=== PATIENT | female | born 1965 | race Caucasian/White ===

== ENCOUNTER 2024-11-07 10:17 | Outpatient (CLI) | payer OTHER | END 2024-11-07 23:59 | disposition home or self-care (01) | LOC: MRI02 10:17 | PROVIDERS: ATTEND Orthopaedic Surgery | DX: S43.432A Superior glenoid labrum lesion of left shoulder, initial encounter (principal); M75.102 Unspecified rotator cuff tear or rupture of left shoulder, not specified as traumatic; M19.012 Primary osteoarthritis, left shoulder; M24.012 Loose body in left shoulder; M89.312 Hypertrophy of bone, left shoulder; M25.812 Other specified joint disorders, left shoulder; X58.XXXA Exposure to other specified factors, initial encounter; Y93.89 Activity, other specified; Y92.89 Other specified places as the place of occurrence of the external cause; Y99.8 Other external cause status | CPT/HCPCS: 73221 ==